=== PATIENT | female | born 1990 | race Caucasian/White ===

== ENCOUNTER 2020-05-13 03:39 | Emergency (ER) | payer OTHER ==
[~2020-05-13] VITALS: Ht 157.5 cm; Wt 116.8 kg
[2020-05-13 03:39] VITALS: BP 149/90
[2020-05-13] MEDS ORDERED: FLUO20CA22 PO (03:48)
--- NOTE | 2020-05-13 04:57 | REPVR ---
PROCEDURE INFORMATION: Exam: US Duplex Left Lower Extremity Veins, Limited Exam date and time: 05/13/2020 4:47 AM Age: 30 years old Clinical indication: Pain; Leg, lower; Left; Additional info: Pain and tenderness TECHNIQUE: Imaging protocol: Real-time Duplex ultrasound of the Left Lower Extremity with 2-D jon scale, color Doppler flow and spectral waveform analysis with image documentation. Limited exam focused on the left lower extremity veins. COMPARISON: No relevant prior studies available. FINDINGS: Left deep veins: Unremarkable. The common femoral, femoral, proximal profunda femoral and popliteal veins are patent without thrombus. Normal Doppler waveforms. Normal compressibility and/or augmentation response. Left superficial veins: Unremarkable. Saphenofemoral junction is patent without thrombus. Soft tissues: Unremarkable. IMPRESSION: No evidence of left lower extremity deep vein thrombosis through the popliteal vein. Infrapopliteal veins were not evaluated on this exam. Electronically signed by: Connor Bryant On 05/13/2020 04:57:35 AM
[2020-05-13 06:38] LABS: HEMATOCRIT 42.8 % (36.0-47.0); HEMOGLOBIN 14.8 g/dl (12.0-15.5); MEAN CORPUSCULAR HEMOGLOBIN 29.7 pg (27.0-33.0); MEAN CORPUSCULAR HGB CONC 34.6 g/dl (32.0-36.5); MEAN CORPUSCULAR VOLUME 85.8 fl (80.0-96.0); PLATELET COUNT, AUTOMATED 321 10^3/uL (150-450); RED BLOOD COUNT 4.99 10^6/uL (4.00-5.40); WHITE BLOOD COUNT 9.7 10^3/uL (4.0-10.0)
[2020-05-13] MEDS ORDERED: NS 1,000 ML IV ONE (06:45)
[2020-05-13] MEDS ORDERED: HumuLIN R (REGULAR) INSULIN (NovoLIN R) **100U/ML** PER UNIT SC STA ×2 (06:45→09:27)
[2020-05-13 06:59] LABS: ATYPICAL LYMPH 6 % (0-5); EOSINOPHILS 1 % (0-3); LYMPHOCYTES 50 % (16-44); MONOCYTES 6 % (0-5); NEUTROPHILS 37 % (28-66); PLATELET ESTIMATE NORMAL (NORMAL)
[2020-05-13 07:07] LABS: ALBUMIN 3.9 GM/DL (3.2-5.2); BILIRUBIN,DIRECT 0.1 MG/DL (0.0-0.2); BILIRUBIN,TOTAL 0.3 MG/DL (0.2-1.0); TOTAL PROTEIN 7.5 GM/DL (6.4-8.2)
[2020-05-13 07:43] LABS: HEMOGLOBIN A1c 12.7 %
[2020-05-13] MEDS ORDERED: METF-838 PO (09:48)
[2020-05-13 10:47] LABS: ACETONE/KETONE 2.07 MG/DL (<2.81)
== END 2020-05-13 10:35 | disposition home or self-care (01) ==
LOC: M ED 03:39
DX: R25.2 Cramp and spasm (principal); E11.9 Type 2 diabetes mellitus without complications; J45.909 Unspecified asthma, uncomplicated; F41.9 Anxiety disorder, unspecified; F33.9 Major depressive disorder, recurrent, unspecified; Z88.2 Allergy status to sulfonamides; Z88.8 Allergy status to other drugs, medicaments and biological substances; Z79.899 Other long term (current) drug therapy

== ENCOUNTER → 2020-08-18 | Outpatient (CLI) | payer OTHER ==
[~2020-08-18] MED LIST: FLUO20CA22 PO; METF-838 PO
== END ==
LOC: M LABSMTC 13:16
PROVIDERS: ATTEND Family Medicine
DX: Z20.822 Contact with and (suspected) exposure to COVID-19 (principal)

== ENCOUNTER → 2020-09-11 | Outpatient (REF) | payer OTHER ==
[2020-09-11 14:17] LABS: CHOLESTEROL RISK RATIO 6.263 (<5)
[2020-09-11 14:27] LABS: HEMOGLOBIN A1c 7.6 %
== END ==
LOC: M PLALAB 11:01
PROVIDERS: ATTEND Family Medicine
DX: E11.9 Type 2 diabetes mellitus without complications (principal)

== ENCOUNTER → 2022-07-09 | Outpatient (CLI) | payer BC ==
[2022-07-09 18:41] LABS: HEMATOCRIT 43.7 % (36.0-47.0); HEMOGLOBIN 14.6 g/dl (12.0-15.5); MEAN CORPUSCULAR HEMOGLOBIN 29.7 pg (27.0-33.0); MEAN CORPUSCULAR HGB CONC 33.4 g/dl (32.0-36.5); MEAN CORPUSCULAR VOLUME 88.8 fl (80.0-96.0); PLATELET COUNT, AUTOMATED 299 10^3/uL (150-450); RED BLOOD COUNT 4.92 10^6/uL (4.00-5.40); WHITE BLOOD COUNT 7.9 10^3/uL (4.0-10.0)
[2022-07-09 19:21] LABS: ALBUMIN 3.8 G/DL (3.2-5.2); ALKALINE PHOSPHATASE 136 U/L (46-116); ALT/SGPT 26 U/L (7.0-40); AST/SGOT 13 U/L (<34); BILIRUBIN,TOTAL 0.3 MG/DL (0.3-1.2); BLOOD UREA NITROGEN 10 MG/DL (9-23); CALCIUM LEVEL 9.8 MG/DL (8.5-10.1); CARBON DIOXIDE LEVEL 31 MMOL/L (20-31); CHLORIDE LEVEL 97 MMOL/L (98-107); CHOLESTEROL LEVEL 232 MG/DL (<200); CREATININE FOR GFR 0.47 MG/DL (0.55-1.30); GLOMERULAR FILTRATION RATE > 60.0 (>60); GLUCOSE, FASTING 286 MG/DL (60-100); HDL CHOLESTEROL 42.9 MG/DL (>40); LDL CHOLESTEROL 167.3 MG/DL (<100); NON-HDL-C 189 MG/DL; POTASSIUM SERUM 4.7 MMOL/L (3.5-5.1); SODIUM LEVEL 135 MMOL/L (136-145); THYROID STIMULATING HORMONE 1.072 uIU/ML (0.55-4.78); TOTAL 25(OH) VITAMIN D 12.7 NG/ML (20.0-100.0); TRIGLYCERIDES LEVEL 109 MG/DL (<150); VITAMIN B12 LEVEL 322 PG/ML (211-911)
[2022-07-09 19:29] LABS: MALB URINE SIEMENS < 5.0 MG/DL; MAU/CREAT RATIO 12.1 MCG/MG (0.0-30.0)
[2022-07-09 19:33] LABS: HEMOGLOBIN A1c 11.4 % (4.0-6.0)
[2022-07-09 20:36] LABS: FREE T4 1.11 NG/DL (0.89-1.76)
[2022-07-12 17:10] LABS: INSULIN LEVEL 13.2 uIU/mL (2.6-24.9); TESTOSTERONE FREE (DIRECT) 2.2 pg/mL (0.0-4.2)
== END | disposition home or self-care (01) ==
LOC: M PLALAB 14:41
PROVIDERS: ATTEND Internal Medicine Pulmonary Disease
DX: E11.9 Type 2 diabetes mellitus without complications (principal); M25.532 Pain in left wrist

== ENCOUNTER → 2022-10-21 | Outpatient (CLI) | payer BC ==
[~2022-10-21] MED LIST changes: +ALEV220T22 PO; +ATOR1TAB21 PO; +GLIM2TAB4 PO; +VESTURA PO; +VIT1LOZE2 PO; +VITA100093 PO
== END ==
LOC: M PLALAB 09:00
PROVIDERS: ATTEND Nurse Practitioner Family
DX: N92.6 Irregular menstruation, unspecified (principal); Z80.3 Family history of malignant neoplasm of breast

== ENCOUNTER → 2022-10-22 | Outpatient (CLI) | payer BC | LOC: M LABSMTC 08:38 | PROVIDERS: ATTEND Anesthesiology | DX: Z01.812 Encounter for preprocedural laboratory examination (principal) ==

== ENCOUNTER 2022-10-27 06:14 | Day surgery (SDC) | payer BC ==
[~2022-10-27] VITALS: Ht 157.5 cm; Wt 92.5 kg
[~2022-10-27 06:14] MED LIST changes: +LIDOCAINE W/EPINEPHRINE 1% 20ML VIAL XX ONE; +SODIUM BICARBONATE 8.4% INJ 50MEQ 50ML VIAL XX ONE
[2022-10-27] MEDS ORDERED: BUPIVACAINE HCL 0.25% 30ML VIAL As Ordered ONE (07:20)
[2022-10-27] MEDS ORDERED: BACITRACIN OINTMENT 30GM TUBE As Ordered ONE (07:55)
[2022-10-27 08:13] VITALS: BP 138/82
== END 2022-10-27 08:34 | disposition home or self-care (01) ==
LOC: M SDC 06:14
PROVIDERS: ATTEND Orthopaedic Surgery Hand Surgery
DX: M65.4 Radial styloid tenosynovitis [de Quervain] (principal); E11.9 Type 2 diabetes mellitus without complications; G43.909 Migraine, unspecified, not intractable, without status migrainosus; J45.909 Unspecified asthma, uncomplicated; F41.9 Anxiety disorder, unspecified; F32.A Depression, unspecified; Z79.84 Long term (current) use of oral hypoglycemic drugs; Z79.899 Other long term (current) drug therapy
CPT/HCPCS: 25000; 81025; S0020

== ENCOUNTER → 2022-11-10 | Outpatient (CLI) | payer BC ==
[~2022-11-10] MED LIST changes: -LIDOCAINE W/EPINEPHRINE 1% 20ML VIAL XX ONE; -SODIUM BICARBONATE 8.4% INJ 50MEQ 50ML VIAL XX ONE
== END ==
LOC: M WHC 12:51
PROVIDERS: ATTEND Nurse Practitioner Family
DX: N92.6 Irregular menstruation, unspecified (principal)

== ENCOUNTER 2023-06-04 02:12 | Emergency (ER) | payer BC ==
[~2023-06-04] VITALS: Ht 157.5 cm; Wt 108.9 kg
[2023-06-04] MEDS ORDERED: AUGMENTIN 875 MG TAB PO ONE (07:25)
[2023-06-04] MEDS ORDERED: AMOX875T2 PO (07:25)
[2023-06-04 07:40] VITALS: BP 138/89; TEMP 97.9; O2SAT 95
== END 2023-06-04 07:46 | disposition home or self-care (01) ==
LOC: M ED 02:12
DX: J06.9 Acute upper respiratory infection, unspecified (principal); H66.002 Acute suppurative otitis media without spontaneous rupture of ear drum, left ear; Z88.2 Allergy status to sulfonamides; Z79.2 Long term (current) use of antibiotics